=== PATIENT | male | born 1955 | race Caucasian/White ===

== ENCOUNTER 2018-04-23 14:29 | Emergency (ER) | payer OTHER ==
[2018-04-23 14:34] VITALS: BP 152/84; PULSE 59; TEMP 97.6; BMI 24.8
[2018-04-23] MEDS ORDERED: SODIUM CHLORIDE 1,000 ML IV ONE ×2 (14:50→17:26)
[2018-04-23] MEDS ORDERED: ONDANSETRON 4 MG/2 ML VIAL IVPB ONE (14:50)
[2018-04-23] MEDS ORDERED: ONDANSETRON 4 MG/2 ML VIAL ONE (14:55)
[2018-04-23 14:57] LABS: URINE APPEARANCE Clear; URINE BILIRUBIN Negative (NEGATIVE); URINE COLOR Amber; URINE GLUCOSE (UA) Negative (NEGATIVE); URINE KETONE 1+ (NEGATIVE); URINE LEUK ESTERASE Negative (NEGATIVE); URINE NITRITE Negative (NEGATIVE); URINE PROTEIN Negative (NEGATIVE); URINE UROBILINOGEN 0.2 (0.2-1.0)
[2018-04-23] MEDS ORDERED: KETOROLAC TROMETHAMINE 30 MG/1 ML VIAL IVPUSH ONE (15:04)
[2018-04-23] MEDS ORDERED: KETOROLAC TROMETHAMINE 30 MG/1 ML VIAL ONE (15:05)
[2018-04-23 15:07] LABS: URINE RBC >100 /hpf (0-3)
--- NOTE | 2018-04-23 15:12 | PDOC ---
History of Present Illness - General Chief Complaint: Pain, Acute Stated Complaint: RT FLANK PAIN Time Seen by Provider: 04/23/18 14:49 History Source: Patient Exam Limitations: No Limitations - History of Present Illness Travel History: No Initial Comments: 04/23/18 15:11 62y M hx of htn, kideny stones, presents with R sided flank pain, nausea/ diarrhae x 24 hrs. Pt has been persistent in pain, RLQ radating to the R flank. Associated with nausea and few episodes of diarrhae. pt endorses similar episode 5 years ago and was dx with kdiey stones and passed a stone uneventfully without needing intervention. pt denies associated fever/chills, dysuria, discharge, hematuria, frequency, cp , sob. pt denies cp, sob, diaphreois, numbness/tingling/weakness. Past History - Past Medical History Allergies/Adverse Reactions: Allergies Allergy/AdvReac Type Severity Reaction Status Date / Time No Known Allergies Allergy Verified 04/23/18 14:31 Home Medications: Ambulatory Orders Amoxicillin/Potassium Clav [Augmentin 875-125 Tablet] 1 each PO BID 04/23/18 Ibuprofen 400 mg PO QID #30 tablet 04/23/18 Ibuprofen [Advil -] 200 mg PO ASDIR PRN 04/23/18 Lisinopril [Prinivil] 10 mg PO DAILY 04/23/18 Oxycodone HCl/Acetaminophen [Percocet 5-325 mg Tablet -] 1 combo PO Q6H PRN #14 tablet MDD 4 04/23/18 Tamsulosin HCl [Flomax] 0.4 mg PO DAILY #7 capsule 04/23/18 COPD: No HTN: Yes Kidney Stones: Yes - Suicide/Smoking/Psychosocial Hx Smoking History: Never smoked Have you smoked in the past 12 months: No Information on smoking cessation initiated: No Hx Alcohol Use: No Review of Systems - Review of Systems Able to Perform ROS?: Yes Comments:: 04/23/18 15:31 Constitutional - no reported Fever, Chills, HEENT: no reported vision changes, sore throat Respiratory: no reported cough, sob, hemoptysis Cardiac: no reported chest pain, palpitations, light headedness, leg swelling Abd/GI: +nausea, vomiting, no reported abd pain, blood per rectum, melena, diarrhea : no reported dysuria, frequency, discharge Musculskelatal - +back pain, no reported joint swelling skin - no reported bruising, erythema, rash neurological: no reported headache, numbness, focal weakness, tingling, ataxia, hematologic: no reported easy bruising, easy bleeding *Physical Exam - Vital Signs Last Vital Signs Temp Pulse Resp BP Pulse Ox 97.6 F 59 L 18 152/84 100 04/23/18 14:30 04/23/18 14:30 04/23/18 14:30 04/23/18 14:30 04/23/18 14:30 - Physical Exam Comments: 04/23/18 15:33 GENERAL: The patient is awake, alert, and fully oriented, Nontoxic - in no acute distress. HEAD: Normocephalic, atraumatic. EYES: extraocular movements intact, sclera anicteric, conjunctiva clear. ENT: Normal voice, Moist mucous membranes. NECK: Normal range of motion, supple LUNGS: Breath sounds equal, clear to auscultation bilaterally. No wheezes, no rhonchi, no rales. HEART: Regular rate and rhythm, normal S1 and S2 without murmur, rub or gallop. ABDOMEN: Soft, nontender, No guarding, no rebound. No CVA tenderness EXTREMITIES: Normal range of motion, NEUROLOGICAL: No facial assymetry, Normal speech, PSYCH: Normal mood, normal affect. SKIN: Warm, Dry, normal turgor, Moderate Sedation - Procedure Monitoring Vital Signs: Procedure Monitoring Vital Signs Temperature 97.6 F 04/23/18 14:30 Pulse Rate 59 L 04/23/18 14:30 Respiratory Rate 18 04/23/18 14:30 Blood Pressure 152/84 04/23/18 14:30 O2 Sat by Pulse Oximetry (%) 100 04/23/18 14:30 ED Treatment Course - LABORATORY CBC & Chemistry Diagram: 04/23/18 14:47 04/23/18 14:47 - ADDITIONAL ORDERS Additional order review: Laboratory Results 04/23/18 14:47 Urine Color [place] Urine Appearance Clear Urine pH 5.0 Ur Specific [place] >= 1.030 Urine Protein Negative Urine Glucose (UA) Negative Urine Ketones 1+ H Urine Blood 3+ H Urine Nitrite Negative Urine Bilirubin Negative Urine Urobilinogen 0.2 Ur Leukocyte Esterase Negative Urine RBC >100 Urine WBC 2-5 - Medications Given in the ED: ED Medications Discontinued Medications Generic Name Dose Route Start Last Admin Trade Name Freq PRN Reason Stop Dose Admin Ketorolac Tromethamine 30 mg 04/23/18 15:04 04/23/18 15:09 Toradol Injection - IVPUSH 04/23/18 15:05 30 mg ONCE ONE Administration Ondansetron HCl 4 mg 04/23/18 14:50 04/23/18 15:09 Zofran Injection IVPB 04/23/18 14:51 4 mg ONCE ONE Administration Medical Decision Making - Medical Decision Making 04/23/18 15:33 suspect kidney stone will give toradol, fluids, zofran will obtain US no neuro complaints will reassess *DC/Admit/Observation/Transfer Diagnosis at time of Disposition: Kidney stone on right side - Discharge Dispostion Disposition: HOME Condition at time of disposition: Stable Decision to Admit order: No - Prescriptions Prescriptions: Ibuprofen 400 mg PO QID #30 tablet Oxycodone HCl/Acetaminophen [Percocet 5-325 mg Tablet -] 1 combo PO Q6H PRN #14 tablet MDD 4 PRN Reason: Pain Tamsulosin HCl [Flomax] 0.4 mg PO DAILY #7 capsule - Referrals Referrals: Gopi Beck MD [Staff Physician] - - Patient Instructions Printed Discharge Instructions: DI for Kidney Stones Additional Instructions: Return to the emergency department immediately with ANY new, persistent or worsening symptoms including worsening pain, inability to tolerate oral intake, fever/chills, or any other concerns. Take the ibuprofen every 6 hours for the next 2 days. Take percocet if you have pain that is not treated with the motrin/ibuprofen. Beware that it may make you sleepy, so do not drive or do anything that would put you or others in danger. Take flomax daily. Stay well hydrated. You MUST call and follow up with your doctor and urology within 3 days for further evaluation of your symptoms. Your emergency department visit is not complete without a followup with your doctor for reevaluation. Results were discussed with you. Please make sure your doctor reviews the results of your emergency evaluation. - Post Discharge Activity
[2018-04-23 15:15] LABS: BASO % 0.9 % (0-2.0); EOS % 0.7 % (0-4.5); HEMATOCRIT 43.8 % (35.4-49); HEMOGLOBIN 14.9 GM/dl (11.7-16.9); LYMPH % 21.3 % (8-40); MCH 32.5 pg (25.7-33.7); MCHC 33.9 g/dl (32.0-35.9); MEAN CELL VOLUME 95.7 fl (80-96); MEAN PLT VOLUME 8.8 fl (7.5-11.1); MONO % 9.2 % (3.8-10.2); NEUT % 67.9 % (42.8-82.8); PLATELET COUNT 194 K/MM3 (134-434); RBC 4.57 M/mm3 (4.00-5.60); RDW 12.5 % (11.9-15.9); WHITE BLOOD COUNT 6.2 K/mm3 (4.0-10.8)
[2018-04-23 15:23] LABS: ALBUMIN 4.1 g/dl (3.5-5.0); ALK PHOS 46 U/L (32-92); ANION GAP 5 MMOL/L (8-16); BILIRUBIN,TOTAL 1.3 mg/dl (0.2-1.0); BLOOD UREA NITROGEN 16 mg/dl (7-18); CALCIUM 8.9 mg/dl (8.4-10.2); CHLORIDE 103 mmol/L (98-107); CO2 24 mmol/L (22-28); CREATININE 1.1 mg/dl (0.6-1.3); GLUCOSE,RANDOM 129 mg/dl (74-106); POTASSIUM 3.8 mmol/L (3.5-5.1); SGOT/AST 32 U/L (10-42); SGPT/ALT 31 U/L (10-40); SODIUM 132 mmol/L (136-145); TOT PROT 7.5 g/dl (6.4-8.3)
[2018-04-23] MEDS ORDERED: morphine CARPU-JECT 4 MG/1 ML DISP.SYRIN IVPUSH ONE ×2 (16:29→17:26)
[2018-04-23] MEDS ORDERED: morphine SULFATE 4 MG/ML VIAL ONE ×2 (16:30→17:32)
== END 2018-04-23 20:10 | disposition home or self-care (01) ==
LOC: FER 14:29
PROC: 3E0337Z Introduction of Electrolytic and Water Balance Substance into Peripheral Vein, Percutaneous Approach (ICD-10-PCS; principal; 2018-04-23)
PROC: 3E033GC Introduction of Other Therapeutic Substance into Peripheral Vein, Percutaneous Approach (ICD-10-PCS; 2018-04-23)
PROC: 3E033NZ Introduction of Analgesics, Hypnotics, Sedatives into Peripheral Vein, Percutaneous Approach (ICD-10-PCS; 2018-04-23)
PROC: 3E0333Z Introduction of Anti-inflammatory into Peripheral Vein, Percutaneous Approach (ICD-10-PCS; 2018-04-23)
DX: N20.0 Calculus of kidney (principal); I10 Essential (primary) hypertension
CPT/HCPCS: 36415; 74176; 76775-TC; 80053; 81003; 81015; 85025; 99285-25; J7030

== ENCOUNTER 2018-04-27 12:02 | Emergency (ER) | payer OTHER ==
[2018-04-27 12:14] VITALS: BP 157/90; PULSE 53; TEMP 98.1; BMI 24.7
[2018-04-27] MEDS ORDERED: SODIUM CHLORIDE 1,000 ML IV STA (12:44)
--- NOTE | 2018-04-27 12:44 | PDOC ---
History of Present Illness - General Chief Complaint: Pain Stated Complaint: KIDNEY STONE Time Seen by Provider: 04/27/18 12:43 - History of Present Illness Initial Comments: 04/27/18 13:19 Chief complaint: Colicky right lower abdominal pain History of present illness: Patient with a history of kidney stones, renal colic , presents with recurrent pain this morning. Pain is similar to that experienced 5 days ago, at which time he was treated in the emergency room for distal right ureteral stone visualized on CT. Mild to moderate [place] was present at the time. However, his pain resolved in the ensuing 2 days, and he was pain-free until this morning. Review of systems: No fever/chills, back pain, hematuria, foul-smelling or discolored urine, chest pain, shortness of breath, nausea, vomiting, diarrhea. Past medical history: One prior episode of renal colic approximately 5 years ago , stone passed spontaneously. No urological evaluation. Right hip replacement Medications: Ibuprofen, occasional Percocet, Flomax Social/family history reviewed and noncontributory Physical exam: Alert and oriented well-developed well-nourished no acute distress. No pain at present. Afebrile, vital signs normal HEENT clear Neck supple without bruit mass or nodes Chest clear CV regular without murmur rub or gallop Abdomen nondistended. Bowel sounds normal. Soft without masses tenderness organomegaly. No CVAT Impression: Recurrent renal colic, with probable passage of another small stone. Plan: IV fluids and observation. Pain did not recur. Medication as necessary if pain returns, and recheck emergency room as necessary. Fully ambulatory and in no pain or other distress upon discharge with to follow-up as directed Past History - Past Medical History Allergies/Adverse Reactions: Allergies Allergy/AdvReac Type Severity Reaction Status Date / Time No Known Allergies Allergy Verified 04/27/18 12:30 Home Medications: Ambulatory Orders Amoxicillin/Potassium Clav [Augmentin 875-125 Tablet] 1 each PO BID 04/23/18 Lisinopril [Prinivil] 10 mg PO HS 04/23/18 Ibuprofen 400 mg PO QID #30 tablet 04/27/18 Oxycodone HCl/Acetaminophen [Percocet 5-325 mg Tablet] 1 combo PO Q6H PRN #14 tablet MDD 4 04/27/18 Tamsulosin HCl [Flomax -] 0.4 mg PO HS #14 cap.er.24h 04/27/18 COPD: No HTN: Yes Kidney Stones: Yes - Suicide/Smoking/Psychosocial Hx Smoking History: Never smoked Have you smoked in the past 12 months: No Hx Alcohol Use: No Drug/Substance Use Hx: No Substance Use Type: None *Physical Exam - Vital Signs Last Vital Signs Temp Pulse Resp BP Pulse Ox 98.1 F 53 L 16 157/90 100 04/27/18 12:03 04/27/18 12:03 04/27/18 12:03 04/27/18 12:03 04/27/18 12:03 Moderate Sedation - Procedure Monitoring Vital Signs: Procedure Monitoring Vital Signs Temperature 98.1 F 04/27/18 12:03 Pulse Rate 53 L 04/27/18 12:03 Respiratory Rate 16 04/27/18 12:03 Blood Pressure 157/90 04/27/18 12:03 O2 Sat by Pulse Oximetry (%) 100 04/27/18 12:03 *DC/Admit/Observation/Transfer Diagnosis at time of Disposition: Kidney stone on right side - Discharge Dispostion Disposition: HOME Condition at time of disposition: Improved Decision to Admit order: No - Prescriptions Prescriptions: Ibuprofen 400 mg PO QID #30 tablet Oxycodone HCl/Acetaminophen [Percocet 5-325 mg Tablet] 1 combo PO Q6H PRN #14 tablet MDD 4 PRN Reason: Pain Tamsulosin HCl [Flomax -] 0.4 mg PO HS #14 cap.er.24h - Referrals Referrals: Marshall Garza MD [Staff Physician] - 1 week - Patient Instructions Printed Discharge Instructions: DI for Kidney Stones - Post Discharge Activity
== END 2018-04-27 13:21 | disposition home or self-care (01) ==
LOC: FER 12:02
PROC: 3E0337Z Introduction of Electrolytic and Water Balance Substance into Peripheral Vein, Percutaneous Approach (ICD-10-PCS; principal; 2018-04-27)
DX: N20.0 Calculus of kidney (principal); I10 Essential (primary) hypertension
CPT/HCPCS: 99282-25; J7030